=== PATIENT | female | born 1950 | race Caucasian/White ===

== ENCOUNTER → 2020-02-08 10:16 | Outpatient (CLI) | payer MEDICARE, SELFPAY ==
--- NOTE | ~2020-02-08 | DEXA_ITS ---
Bone Density Report Name: María Bang Age: 69 Sex: Female Ethnicity: White Date of : 1950 Indication: osteopenia; monitoring treatment; height loss; postmenopausal Referring Provider: Joel, Kaila Study: Bone densitometry was performed. Exam Date: February 08, 2020 Accession number: [id number] Bone Density: Region BMD T-score Z-score Classification AP Spine (L1-L4) 0.923 -1.1 0.8 Osteopenia Femoral Neck (Left) 0.699 -1.3 0.3 Osteopenia Total Hip (Left) 0.804 -1.1 0.2 Osteopenia Femoral Neck (Right) 0.647 -1.8 -0.2 Osteopenia Total Hip (Right) 0.749 -1.6 -0.2 Osteopenia Total Hip Mean 0.777 -1.4 0.0 Osteopenia World Health Organization criteria for BMD impression classify patients as: Normal (T-score at or above -1.0), Osteopenia (T-score between -1.0 and -2.5), or Osteoporosis (T-score at or below -2.5). 10-year Fracture Risk: FRAX not reported because: Treated for osteoporosis Previous Exams: Region Exam Age BMD T-score BMD Change BMD Change Date g/cm2 vs Baseline vs Previous AP Spine(L1-L4) 02/08/2020 69 0.923 -1.1 0.061* -0.009 11/17/2017 67 0.932 -1.0 0.070* 0.001 10/22/2015 65 0.931 -1.1 0.069* 0.056* 10/18/2013 63 0.875 -1.6 0.013 0.011 09/15/2011 60 0.863 -1.7 0.002 -0.023 09/05/2009 58 0.886 -1.5 0.024* -0.023 07/27/2007 56 0.909 -1.3 0.047* 0.047* 08/06/2004 53 0.862 -1.7 Total Hip(Left) 02/08/2020 69 0.804 -1.1 0.017 -0.019 11/17/2017 67 0.823 -1.0 0.036* 0.034* 10/22/2015 65 0.788 -1.3 0.002 -0.025 10/18/2013 63 0.814 -1.1 0.027 0.039* 09/15/2011 60 0.775 -1.4 -0.012 -0.016 09/05/2009 58 0.790 -1.2 0.004 0.017 07/27/2007 56 0.773 -1.4 -0.013 -0.013 08/06/2004 53 0.786 -1.3 Total Hip(Right) 02/08/2020 69 0.749 -1.6 0.004 0.002 11/17/2017 67 0.747 -1.6 0.002 0.027 10/22/2015 65 0.720 -1.8 -0.025 -0.020 10/18/2013 63 0.740 -1.7 -0.005 0.013 09/15/2011 60 0.727 -1.8 -0.018 0.002 09/05/2009 58 0.725 -1.8 -0.020 0.005 07/27/2007 56 0.720 -1.8 -0.025 -0.025 08/06/2004 53 0.745 -1.6 *Denotes significance at 95% confidence level, LSC for AP Sp
== END ==
PROVIDERS: Visit Provider Nurse Practitioner
DX: M85.88 Other specified disorders of bone density and structure, other site (principal); M85.852 Other specified disorders of bone density and structure, left thigh; M85.851 Other specified disorders of bone density and structure, right thigh
CPT/HCPCS: 77080

== ENCOUNTER 2020-04-23 12:12 | Outpatient (CLI) | payer MEDICARE, SELFPAY ==
--- NOTE | ~2020-04-23 | MM_ITS ---
EXAMINATION: MM diagnostic evan BI w karol HISTORY: Fibrocystic breasts TECHNIQUE: ML, MLO and cc 3-D tomosynthesis images of both breasts were performed and synthetic 2-D i mages were generated. CAD analysis was submitted and interpreted. COMPARISON: 04/05/2019, 03/16/2018, 01/15/2017 bilateral digital mammogram examinations 03/16/2018 bilateral complete breast ultrasound BREAST PARENCHYMAL COMPOSITION: There are scattered areas of fibroglandular density. FINDINGS: Stable mild fibroglandular asymmetry. No suspicious mass, architectural distortion, maligna nt calcification, skin thickening or retraction or significant new or developing density of either br east is detected. IMPRESSION: 1. No mammographic evidence of malignancy 2. Routine mammographic screening is recommended. BI-RADS Category 2: Benign finding(s). Reviewed, dictated and finalized at location A.
== END 2020-04-23 12:13 | disposition home or self-care (01) ==
DX: R92.8 Other abnormal and inconclusive findings on diagnostic imaging of breast (principal)
CPT/HCPCS: 77062; 77066; G0279

== ENCOUNTER 2021-04-23 13:43 | Outpatient (CLI) | payer MEDICARE, SELFPAY ==
--- NOTE | ~2021-04-23 | MM_ITS ---
EXAMINATION: MM screening evan BI w karol HISTORY: Screening mammogram TECHNIQUE: Craniocaudal and mediolateral oblique 3-D tomosynthesis images were obtained and synthetic 2-D images were generated. CAD analysis was submitted and interpreted. COMPARISON: 04/23/2020, 04/05/2019 diagnostic bilateral mammogram 03/16/2018 bilateral diagnostic mammography and bilateral complete breast ultrasound BREAST PARENCHYMAL COMPOSITION: There are scattered areas of fibroglandular density. FINDINGS: Approximately 1.5 cm possible mass with halo sign is suggested anteriorly in the outer righ t breast (CC Tomosynthesis image 22/53). Diagnostic right mammogram and right breast ultrasound exami nation are recommended. Otherwise there is no evidence of suspicious mass, calcification, or architectural distortion to sugg est malignancy in either breast. There has been no other suspicious interval change. IMPRESSION: 1. Possible anterior outer right breast mass 2. Diagnostic right mammogram and right breast ultrasound examination are recommended BI-RADS Category 0: Incomplete: Needs additional imaging evaluation. Reviewed, dictated and finalized at location A. IMPRESSION: 1. Possible anterior outer right breast mass 2. Diagnostic right mammogram and right breast ultrasound examination are recom mended BI-RADS Category 0: Incomplete: Needs additional imaging evaluation.
== END 2021-04-23 13:44 | disposition home or self-care (01) ==
DX: Z12.31 Encounter for screening mammogram for malignant neoplasm of breast (principal); R92.8 Other abnormal and inconclusive findings on diagnostic imaging of breast
CPT/HCPCS: 77063; 77067

== ENCOUNTER 2021-05-20 11:46 | Outpatient (CLI) | payer MEDICARE, SELFPAY ==
--- NOTE | ~2021-05-20 | MMUS_ITS ---
EXAMINATION: MM diagnostic evan RT w karol, US breast RT limited HISTORY: Possible right breast mass TECHNIQUE: Additional 3-D tomosynthesis images of the right breast were performed and synthetic 2-D i mages were generated. CAD analysis was submitted and interpreted. High resolution limited right breas t ultrasound was performed. COMPARISON: 04/23/2021, 04/23/2020, 04/05/2019 BREAST PARENCHYMAL COMPOSITION: There are scattered areas of fibroglandular density. FINDINGS: MAMMOGRAPHIC FINDINGS: An asymmetry in the anterior third of the slightly outer breast on the craniocaudal view has an appea ru similar to prior mammograms with spot compression. No suspicious mass, calcification, or hector ectural distortion are identified. ULTRASOUND: There is a 6 mm x 5 mm oval, circumscribed, parallel, complex cystic and solid mass at 8:00 location of the nipple with no posterior features or internal vascularity. There is a 3 mm cyst at the 10:00 l ocation 3 cm from the nipple. There is a 4 mm cyst at the 8:00 location 3 cm from the nipple. IMPRESSION: 1. Probable clustered microcysts at the 8:00 location near the nipple. 2. Recommend 6 month follow-up right diagnostic mammogram and ultrasound. BI-RADS category 3, probably benign findings. Reviewed, dictated and finalized at location A. [employer] IMPRESSION: 1. Probable clustered microcysts at the 8:00 location near the nipple. 2. Recommend 6 month follow-up right diagnostic mammogram and ultrasound. BI-RADS category 3, probably benign findings.
== END 2021-05-20 11:47 | disposition home or self-care (01) ==
LOC: ANHIMG 11:49
DX: N63.10 Unspecified lump in the right breast, unspecified quadrant (principal); R92.8 Other abnormal and inconclusive findings on diagnostic imaging of breast
CPT/HCPCS: 76642; 77061; 77065; G0279

== ENCOUNTER 2021-12-24 11:38 | Outpatient (CLI) | payer MEDICARE, SELFPAY ==
--- NOTE | ~2021-12-24 | MMUS_ITS ---
EXAMINATION: MM diagnostic evan RT w karol, US breast RT limited HISTORY: Six-month follow-up of probable clustered microcysts at 8:00 near nipple TECHNIQUE: ML, MLO and CC 3-D tomosynthesis images of the right breast were performed and synthetic 2 -D images were generated. CAD analysis was submitted and interpreted. High resolution targeted 8:00 r ight breast ultrasound was performed. COMPARISON: 05/20/2021 right diagnostic mammogram and limited right breast ultrasound 04/23/2021 bilateral screening mammogram BREAST PARENCHYMAL COMPOSITION: There are scattered areas of fibroglandular density. FINDINGS: MAMMOGRAPHIC FINDINGS: No suspicious mass, architectural distortion, malignant calcification, skin thickening or retraction or significant new or developing density of the right breast is detected. ULTRASOUND: 8:00 near the nipple there is an antiparallel hypoechoic 3.4 mm deep by 2.6 mm wide area which appear s to be associated with a possible lymph node. There is some posterior shadowing. Ultrasound-guided b iopsy is recommended. IMPRESSION: 1. Focal solid antiparallel hypoechoic area at 8:00 near nipple: Parallel in association with a lymph node, with posterior shadowing. Ultrasound-guided biopsy is recommended 2. Ultrasound-guided biopsy is recommended at 8:00 near nipple BI-RADS category 4, suspicious findings. Reviewed, dictated and finalized at location A. IMPRESSION: 1. Focal solid antiparallel hypoechoic area at 8:00 near nipple: Parallel in as sociation with a lymph node, with posterior shadowing. Ultrasound-guided biopsy is recommended 2. Ultrasound-guided biopsy is recommended at 8:00 near nipple BI-RADS category 4, suspicious findings.
== END 2021-12-24 11:39 | disposition home or self-care (01) ==
DX: R92.8 Other abnormal and inconclusive findings on diagnostic imaging of breast (principal)
CPT/HCPCS: 76642; 77061; 77065; G0279

== ENCOUNTER → 2022-03-18 10:18 | Outpatient (CLI) | payer MEDICARE, SELFPAY ==
--- NOTE | ~2022-03-18 | DEXA_ITS ---
Bone Density Report Name: ASHELY COKER Age: 71 Sex: Female Ethnicity: White Date of : 1950 Indication: osteopenia; monitoring treatment; height loss; postmenopausal Referring Provider: Joel, Kaila Study: Bone densitometry was performed. Exam Date: March 18, 2022 Accession number: [id number] Bone Density: Region BMD T-score Z-score Classification AP Spine (L1-L4) 0.925 -1.1 1.0 Osteopenia Femoral Neck (Left) 0.703 -1.3 0.5 Osteopenia Total Hip (Left) 0.822 -1.0 0.5 Normal Femoral Neck (Right) 0.657 -1.7 0.0 Osteopenia Total Hip (Right) 0.748 -1.6 -0.1 Osteopenia Total Hip Mean 0.785 -1.3 0.2 Osteopenia World Health Organization criteria for BMD impression classify patients as: Normal (T-score at or above -1.0), Osteopenia (T-score between -1.0 and -2.5), or Osteoporosis (T-score at or below -2.5). 10-year Fracture Risk: FRAX not reported because: Treated for osteoporosis Previous Exams: Region Exam Age BMD T-score BMD Change BMD Change Date g/cm2 vs Baseline vs Previous AP Spine(L1-L4) 03/18/2022 71 0.925 -1.1 0.064* 0.003 02/08/2020 69 0.923 -1.1 0.061* -0.009 11/17/2017 67 0.932 -1.0 0.070* 0.001 10/22/2015 65 0.931 -1.1 0.069* 0.056* 10/18/2013 63 0.875 -1.6 0.013 0.011 09/15/2011 60 0.863 -1.7 0.002 -0.023 09/05/2009 58 0.886 -1.5 0.024* -0.023 07/27/2007 56 0.909 -1.3 0.047* 0.047* 08/06/2004 53 0.862 -1.7 Total Hip(Left) 03/18/2022 71 0.822 -1.0 0.036* 0.018 02/08/2020 69 0.804 -1.1 0.017 -0.019 11/17/2017 67 0.823 -1.0 0.036* 0.034* 10/22/2015 65 0.788 -1.3 0.002 -0.025 10/18/2013 63 0.814 -1.1 0.027 0.039* 09/15/2011 60 0.775 -1.4 -0.012 -0.016 09/05/2009 58 0.790 -1.2 0.004 0.017 07/27/2007 56 0.773 -1.4 -0.013 -0.013 08/06/2004 53 0.786 -1.3 Total Hip(Right) 03/18/2022 71 0.748 -1.6 0.003 -0.001 02/08/2020 69 0.749 -1.6 0.004 0.002 11/17/2017 67 0.747 -1.6 0.002 0.027 10/22/2015 65 0.720 -1.8 -0.025 -0.020 10/18/2013 63 0.740 -1.7 -0.005 0.013 09/15/2011 60 0.727 -1.8 -0.018 0.002 09/05/2009 58 0.725 -1.8 -0.020 0.005 07/27/2007 56 0.720 -1.8 -0.025 -0.025
== END ==
PROVIDERS: PCP Nurse Practitioner; Visit Provider Nurse Practitioner
DX: M85.88 Other specified disorders of bone density and structure, other site (principal); M85.852 Other specified disorders of bone density and structure, left thigh; M85.851 Other specified disorders of bone density and structure, right thigh
CPT/HCPCS: 77080

== ENCOUNTER 2022-07-14 13:01 | Outpatient (CLI) | payer MEDICARE, SELFPAY ==
--- NOTE | ~2022-07-14 | US_ITS ---
US breast RT limited DATE: 07/14/2022 13:29 INDICATION: Short-term follow-up of antiparallel hypoechoic 3.4 mm deep by 2.6 mm wide area with some posterior shadowing at 8:00 near the nipple on 12/24/2021 Limited right breast ultrasound examination TECHNIQUE: High-resolution ultrasound and color flow imaging targeted 8:00 near nipple COMPARISON: 12/24/2021 diagnostic right mammogram and limited right breast ultrasound FINDINGS: The previously reported shadowing hypoechoic area 8:00 near the nipple is no longer identif ied. There is a stable benign-appearing approximately 1.9 x 3 mm circumscribed sonolucent area. IMPRESSION: BI-RADS Category 2: Benign Recommendation: Routine annual mammographic screening Reviewed, dictated and finalized at Location A. Reviewed, dictated and finalized at location A. AUDITOR
== END 2022-07-14 13:02 | disposition home or self-care (01) ==
DX: N63.10 Unspecified lump in the right breast, unspecified quadrant (principal); R92.8 Other abnormal and inconclusive findings on diagnostic imaging of breast
CPT/HCPCS: 76642

== ENCOUNTER 2023-02-25 11:16 | Outpatient (CLI) | payer MEDICARE, SELFPAY ==
--- NOTE | ~2023-02-25 | MMUS_ITS ---
EXAMINATION: MM diagnostic evan BI w karol, US breast RT limited HISTORY: History of abnormal imaging finding of right breast, 8:00 near nipple; screening of both tanisha asts. TECHNIQUE: ML, MLO and CC 3-D tomosynthesis images of both breasts were performed and synthetic 2-D i mages were generated. CAD analysis was submitted and interpreted. High resolution limited targeted 8: 00 right breast ultrasound examination was performed. COMPARISON: 07/14/2022 limited right breast ultrasound 12/24/2021 diagnostic right mammogram and limited right breast ultrasound 05/20/2021 diagnostic right mammogram and limited right breast ultrasound 04/23/2021 bilateral screening mammogram BREAST PARENCHYMAL COMPOSITION: There are scattered areas of fibroglandular density. FINDINGS: MAMMOGRAPHIC FINDINGS: No suspicious mass or architectural distortion, malignant calcification, skin thickening or retractio n or significant new or developing density is detected. ULTRASOUND: The previously reported hypoechoic lesion at 8:00 near the nipple has resolved. No suspicious mass or shadowing is detected. IMPRESSION: 1. No mammographic evidence of malignancy 2. Routine annual mammographic screening is recommended BI-RADS Category 1: Negative Reviewed, dictated and finalized at location A. IMPRESSION: 1. No mammographic evidence of malignancy 2. Routine annual mammographic screening is recommended BI-RADS Category 1: Negative
== END 2023-02-25 11:17 | disposition home or self-care (01) ==
LOC: ANHIMG 11:19
DX: N63.10 Unspecified lump in the right breast, unspecified quadrant (principal); R92.2 Inconclusive mammogram
CPT/HCPCS: 76642; 77062; 77066; G0279

== ENCOUNTER 2024-04-12 10:58 | Outpatient (CLI) | payer MEDICARE, SELFPAY ==
--- NOTE | ~2024-04-12 | MM_ITS ---
EXAMINATION: MM diagnostic evan BI w karol HISTORY: History of breast cysts. No current complaints. TECHNIQUE: Additional 3-D tomosynthesis images of the breasts were performed and synthetic 2-D images were generated. CAD analysis was submitted and interpreted. COMPARISON: Comparison to multiple prior studies sequentially, with oldest reviewed study dated 07/2018. BREAST PARENCHYMAL COMPOSITION: Dense: The breasts are heterogeneously dense, which may obscure small masses FINDINGS: The breasts are stable. No new masses, suspicious calcifications or architectural distortio n in either breast to suggest malignancy. IMPRESSION: 1. No mammographic evidence for malignancy in either breast. 2. Routine yearly screening mammogram and regular clinical breast examination are recommended. BI-RADS Category 1: Negative Reviewed, dictated and finalized at location B. IMPRESSION: 1. No mammographic evidence for malignancy in either breast. 2. Routine yearly screening mammogram and regular clinical breast examination a re recommended. BI-RADS Category 1: Negative
== END 2024-04-12 10:59 | disposition home or self-care (01) ==
DX: R92.8 Other abnormal and inconclusive findings on diagnostic imaging of breast (principal)
CPT/HCPCS: 77062; 77066; G0279

== ENCOUNTER 2024-09-07 10:54 | Outpatient (CLI) | payer MEDICARE, OTHER, SELFPAY ==
--- NOTE | ~2024-09-07 | DEXA_ITS ---
Bone Density Report Name: ASHELY COKER Age: 73 Sex: Female Ethnicity: White Date of : 1950 Indication: postmenopausal; screening for osteoporosis; parental hip fracture; height loss; Referring Provider: SANDRA, CINTHYA Study: Bone densitometry was performed. Exam Date: September 07, 2024 Accession number: [id number] Bone Density: Region BMD T-score Z-score Classification AP Spine(L1-L4) 0.918 -1.2 1.1 Osteopenia Femoral Neck (Left) 0.652 -1.8 0.1 Osteopenia Total Hip (Left) 0.829 -0.9 0.7 Normal Femoral Neck (Right) 0.622 -2.0 -0.1 Osteopenia Total Hip (Right) 0.769 -1.4 0.2 Osteopenia Total Hip Mean 0.799 -1.2 0.5 Osteopenia World Health Organization criteria for BMD impression classify patients as: Normal (T-score at or above -1.0), Osteopenia (T-score between -1.0 and -2.5), or Osteoporosis (T-score at or below -2.5). 10-year Fracture Risk(1): Major Osteoporotic Fracture 20% Hip Fracture 7.6% Reported Risk Factors: [place] (), Neck BMD=0.622, BMI=25.7, parental fracture (1) FRAX(R) Version 3.08. Fracture probability calculated for an untreated patient. Fracture probability may be lower if the patient has received treatment. Clinical Information Provided by Patient: Parent has had a hip fracture Has used the following medications: HRT (i.e. estrogen/hormone therapy), Vitamin D Patient maximum height was 64 Menopause Age: 51 No regular weight bearing exercise Drinks caffeinated beverages Onset of menses at age 16 Number of children 2 Impression: The patient has low bone mass, based on the Right Femoral Neck T-score. The patient has an estimated ten-year risk of hip fracture of 7.6% and an estimated ten-year risk of major fracture of 20%, based on the WHO FRAX algorithm. The patient has risk factors, including: parental hip fracture. Discussion: BONE DENSITY IS LOW AT ONE OR MORE SKELETAL SITES. THE PATIENT'S BMD AND CLINICAL RISK FACTORS CONTRIBUTE TO THIS PATIENT'S HIGH RISK OF FRACTURE. This patient's lowest T-score is low at one or more skeletal sites. It meets the World Health Organization's (WHO) criteria for ?low bone mass? (T-score between -1.0 and -2.5). The patient's 10-year risk of hip fracture and 10 year risk of a major osteoporotic fracture as calculated by FRAX exceeds the threshold where pharmacological therapy is recommended by the National Osteoporosis Foundation (NOF). However, all treatment decisions require clinical judgment and consideration of individual patient factors, including patient preferences, comorbidities, previous drug use, risk factors not captured in the FRAX model (e.g., frailty, falls, vitamin D deficiency, increased bone turnover, interval significant decline in bone density) and possible under or overestimation of fracture risk by FRAX. The patient should follow a healthful lifestyle (good nutrition with adequate calcium and vitamin D, and appropriate weight-bearing exercise). Follow-Up: Consider a repeat BMD and Vertebral Fracture Assessment (VFA) exam in 2 years or sooner if medically necessary, to reassess this patient's status. Reported by: GURJIT on 09/07/2024 11:29:00 AM. Reviewed, dictated and finalized at location Dewey AGUIRRE
== END 2024-09-07 10:55 | disposition home or self-care (01) ==
LOC: ANHIMG 10:57
PROVIDERS: Visit Provider Nurse Practitioner
DX: M85.89 Other specified disorders of bone density and structure, multiple sites (principal); Z78.0 Asymptomatic menopausal state; Z13.820 Encounter for screening for osteoporosis
CPT/HCPCS: 77080